=== PATIENT | male | born 1975 | race Caucasian/White ===

== ENCOUNTER 2017-10-08 18:08 | Inpatient (IN) ==
[2017-10-08] MEDS ORDERED: 0.9 % Sodium Chloride 1,000 ML IVC ONE (18:23)
[2017-10-08 18:49] LABS: Bilirubin,Urine Negative (Negative); Blood,Urine Negative (Negative); Clarity,Urine Clear (Clear); Color,Urine Yellow (Yellow); Glucose,Urine (UA) Normal (Normal); Ketones,Urine Negative (Negative); Leukocyte Esterase,Urine Negative (Negative); Nitrite,Urine Negative (Negative); Protein,Urine Negative (Neg-Trace); Specific Gravity,Urine 1.009 (1.010-1.025); Urobilinogen,Urine Normal (Normal)
[2017-10-08 18:49] LABS: Basophils # 0.1 K/mcL (0.0-0.2); Basophils % 0.8 %; Eosinophils # 0.1 K/mcL (0.0-0.6); Eosinophils % 1.3 %; Hematocrit 52.9 % (37.5-50.1); Hemoglobin 18.4 g/dL (12.9-16.9); Immature Granulocytes % 0.3 % (0-4); Lymphocytes # 1.9 K/mcL (0.6-4.6); Lymphocytes % 25.7 %; Mean Corpuscular HGB Conc 34.8 g/dL (31.6-35.5); Mean Corpuscular Hemoglobin 33.8 pg (28.0-33.3); Mean Corpuscular Volume 97.1 fL (83.0-100.0); Mean Platelet Volume 9.7 fL (9.4-12.4); Monocytes # 0.5 K/mcL (0.0-1.3); Monocytes % 7.1 %; Neutrophils # 4.8 K/mcL (1.6-8.9); Platelet Count 183 K/mcL (140-400); Red Blood Count 5.45 M/mcL (4.19-5.50); Red Cell Distribution Width 13.7 % (11.5-14.5); Segmented Neutrophils % 64.8 %
[2017-10-08 18:54] LABS: Amphetamine Screen,Urine Negative ng/mL (Cutoff=1000); Barbiturate Screen,Urine Negative ng/mL (Cutoff=200); Benzodiazepines Screen,Urine Negative ng/mL (Cutoff=200); Cannabinoid Screen,Urine Negative ng/mL (Cutoff = 50); Cocaine Screen,Urine Negative ng/mL (Cutoff= 300); Opiate Screen,Urine Negative ng/mL (Cutoff=300); Phencyclidine Screen,Urine Negative ng/mL (Cutoff=25)
[2017-10-08 19:02] LABS: Ethanol 303 mg/dL (0-10)
[2017-10-08 19:03] LABS: Alanine Aminotransferase 21 Units/L (7-52); Albumin/Globulin Ratio 1.9 (1.1-2.2); Alkaline Phosphatase 78 Units/L (34-104); Aspartate Amino Transferase 23 Units/L (13-39); BUN/Creatinine Ratio 10 (6-26); Bilirubin,Direct 0.1 mg/dL (0.0-0.2); Bilirubin,Indirect 0.5 mg/dL (0.0-1.2); Bilirubin,Total 0.6 mg/dL (0.3-1.0); Blood Urea Nitrogen 7 mg/dL (6-20); Calcium 9.5 mg/dL (8.6-10.3); Carbon Dioxide 21 mEq/L (23-29); Chloride 113 mEq/L (98-107); Globulin 2.6 g/dL (2.4-3.5); Glucose 101 mg/dL (70-105); Osmolality,Calculated 294 (280-300); Potassium 3.4 mEq/L (3.5-5.1); Sodium 143 mEq/L (136-145); Total Protein 7.6 g/dL (6.4-8.9); eGFR For African Americans > 60 (> 60); eGFR For Non-African Americans > 60 (> 60)
[2017-10-08 19:05] LABS: Acetaminophen < 1.0 mcg/mL (10-30); Salicylate < 5.0 mg/dL (15.0-30.0)
--- NOTE | 2017-10-08 19:20 | Emergency Department Note ---
START Narrative - START START: I examined this patient and my medical decision-making was reviewed with the Resident Physician. I agree with the documented findings, disposition and treatment plan as described except to the extent set forth below. 42 year old male presents to the ED from the [facility] for medical clearance and pysch eval. Essentially he took about 10 pills of hydroxyzine, propanolol, naprosyn and unknown other pill and drank beer afterwards with in the attempts of killing himself. Patient will be medically admitted for clerance and then fransisco consult due to an ETOH of 300. he is not bradycardic or hypotensive at this time
--- NOTE | 2017-10-08 19:28 | Emergency Department Note ---
Disposition Clinical Impression: Intoxication, Suicidal ideation Suicide attempt by multiple drug overdose Qualifiers: Encounter type: initial encounter Qualified Code(s): T50.902A - Poisoning by unspecified drugs, medicaments and biological substances, intentional self-harm , initial encounter Disposition: Admitted As Inpatient Condition: Good General Adult HPI - General Chief complaint: ED Overdose Stated complaint: OD Time Seen by Provider: 10/08/17 18:13 Source: patient, EMS Limitations: no limitations Nursing Notes Reviewed: Yes Vital Signs Reviewed: Yes - History of Present Illness HPI Narrative: 42 y/o male who drank some beers and took a handful of pills. [facility] because "I just want it all to end ". After arriving to our ER he denies SI/HI but is very sleepy. He is non cooperative and will not answer my questions. According to his medical record he has a hx of bipolar, anxiety, Substance abuse, HTN. Prescribed gabapentin, hydroxyzine, lurasidone, melatonin, propranolol, thiamine. Pain Scale: 0 Improves with: nothing Worsens with: nothing Associated symptoms: Reports: denies other symptoms Treatments Prior to Arrival: none - Related Data Home Medications Medication Instructions Recorded Confirmed Acetaminophen [Tylenol] 650 mg PO TID PRN 10/08/17 10/08/17 Albuterol Sulfate [Albuterol 2 puff IH Q4H PRN 10/08/17 10/08/17 Inhaler] Folic Acid 1 mg PO DAILY 10/08/17 10/08/17 Gabapentin [Neurontin] 600 mg PO TID 10/08/17 10/08/17 Lidocaine 4% CRM (LMX) [Lmx 4] 1 appl TP BID 10/08/17 10/08/17 Lurasidone HCl [Latuda] 80 mg PO HS 10/08/17 10/08/17 Melatonin 9 mg PO HS 10/08/17 10/08/17 Multivitamin [One Daily 1 each PO DAILY 10/08/17 10/08/17 Multivitamin] Naproxen [Naprosyn] 500 mg PO BID PRN 10/08/17 10/08/17 Propranolol [Inderal] 10 mg PO TID PRN 10/08/17 10/08/17 Thiamine (B-1) [Vitamin B-1] 100 mg PO DAILY 10/08/17 10/08/17 hydrOXYzine HCl [Hydroxyzine HCl] 25 mg PO BID PRN 10/08/17 10/08/17 Allergies Allergy/AdvReac Type Severity Reaction Status Date / Time No Known Allergies Allergy Verified 03/06/17 00:23 Limitations: ROS unobtainable due to patients medical condition (Refuses to answer my questions) Past Medical History - Past Medical History Medical history: Reports: no medical history Psychiatric history: Reports: anxiety, bipolar, depression, PTSD - Social History Smoking Status: Current every day smoker Alcohol use: Reports: heavy, recent Drug use: Reports: marijuana Physical Exam - General Limitations: other (Refuses to answer questions.) General appearance: appears intoxicated - Head Head exam: atraumatic - Eye Eye exam: Present: normal appearance, PERRL - ENT ENT exam: normal exam - Neck Neck exam: Present: normal inspection - Chest Chest inspection: Present: normal inspection - Respiratory Respiratory exam: Present: normal lung sounds bilaterally. Absent: respiratory distress - Cardiovascular Cardiovascular exam: Present: regular rate, normal rhythm - Abdominal Exam Abdominal exam: Present: soft, Non-Tender - Extremities Exam Extremities exam: Present: normal inspection - Neurological Exam Neurological exam: Present: other (Intoxicated. Moves all extremities. Wakes up to verbal stimuli.) - Skin Skin exam: Present: warm, dry Course Course Narrative: Intoxicated. Will admit for medical clearance and psychiatric evaluation. No bradycardia. Not currently exhibiting a toxodrome. Will need medical clearance due to pill ingestion and intoxication. ETOH required to be <80 per psychiatry. Vital Signs Temperature 97.2 F L 10/08/17 18:13 Pulse Rate 95 10/08/17 18:13 Respiratory Rate 18 10/08/17 18:13 Blood Pressure 122/79 10/08/17 18:13 O2 Sat by Pulse Oximetry 94 10/08/17 18:13 Temperature 97.2 F L 10/08/17 18:13 Pulse Rate 79 10/08/17 19:41 Respiratory Rate 12 10/08/17 19:41 Blood Pressure 118/67 10/08/17 19:41 O2 Sat by Pulse Oximetry 94 10/08/17 18:13 Oxygen Delivery Oxygen Delivery Room Air Medical Decision Making - Medical Records Medical records reviewed: Yes I reviewed the patient's medical records. - Lab Data Lab results reviewed: Yes I reviewed the patient's lab results. Result diagrams: 10/08/17 18:42 10/08/17 18:42 Lab Results 10/08/17 10/08/17 10/08/17 Range/Units 18:39 18:39 18:42 WBC 7.4 (4.3-11.1) K/mcL RBC 5.45 (4.19-5.50) M/mcL Hgb 18.4 H (12.9-16.9) g/dL Hct 52.9 H (37.5-50.1) % MCV 97.1 (83.0-100.0) fL MCH 33.8 H (28.0-33.3) pg MCHC 34.8 (31.6-35.5) g/dL RDW 13.7 (11.5-14.5) % Plt Count 183 (140-400) K/mcL MPV 9.7 (9.4-12.4) fL Immature Gran % 0.3 (0-4) % Seg Neutrophils % 64.8 % Lymphocytes % 25.7 % Monocytes % 7.1 % Eosinophils % 1.3 % Basophils % 0.8 % Neutrophils # 4.8 (1.6-8.9) K/mcL Lymphocytes # 1.9 (0.6-4.6) K/mcL Monocytes # 0.5 (0.0-1.3) K/mcL Eosinophils # 0.1 (0.0-0.6) K/mcL Basophils # 0.1 (0.0-0.2) K/mcL Sodium (136-145) mEq/L Potassium (3.5-5.1) mEq/L Chloride (98-107) mEq/L Carbon Dioxide (23-29) mEq/L BUN (6-20) mg/dL Creatinine (0.70-1.30) mg/dL Est GFR ( Amer) (> 60) Est GFR (Non-Af Amer) (> 60) BUN/Creatinine Ratio (6-26) Glucose (70-105) mg/dL Calculated Osmolality (280-300) Calcium (8.6-10.3) mg/dL Total Bilirubin (0.3-1.0) mg/dL Direct Bilirubin (0.0-0.2) mg/dL Indirect Bilirubin (0.0-1.2) mg/dL AST (13-39) Units/L ALT (7-52) Units/L Alkaline Phosphatase (34-104) Units/L Serum Total Protein (6.4-8.9) g/dL Albumin (3.5-5.7) g/dL Globulin (2.4-3.5) g/dL Albumin/Globulin Ratio (1.1-2.2) Urine Color Yellow (Yellow) Urine Clarity Clear (Clear) Urine pH 6.0 (5.0-8.0) pH Units Ur Specific [place] 1.009 L (1.010-1.025) Urine Protein Negative (Neg-Trace) mg/dL Urine Glucose (UA) Normal (Normal) mg/dL Urine Ketones Negative (Negative) mg/dL Urine Blood Negative (Negative) Urine Nitrite Negative (Negative) Urine Bilirubin Negative (Negative) Urine Urobilinogen Normal (Normal) mg/dL Ur Leukocyte Esterase Negative (Negative) Salicylates (15.0-30.0) mg/dL Urine Opiates Screen Negative (Fmtrhd=811) ng/mL Acetaminophen (10-30) mcg/mL Ur Barbiturates Screen Negative (Mxcnpi=461) ng/mL Ur Phencyclidine Scrn Negative (Cutoff=25) ng/mL Ur Amphetamines Screen Negative (Yvnlid=3513) ng/mL U Benzodiazepines Scrn Negative (Sjwavs=521) ng/mL Urine Cocaine Screen Negative (Cutoff= 300) ng/mL U Marijuana (THC) Screen Negative (Cutoff = 50) ng/mL Ethyl Alcohol (0-10) mg/dL 10/08/17 Range/Units 18:42 WBC (4.3-11.1) K/mcL RBC (4.19-5.50) M/mcL Hgb (12.9-16.9) g/dL Hct (37.5-50.1) % MCV (83.0-100.0) fL MCH (28.0-33.3) pg MCHC (31.6-35.5) g/dL RDW (11.5-14.5) % Plt Count (140-400) K/mcL MPV (9.4-12.4) fL Immature Gran % (0-4) % Seg Neutrophils % % Lymphocytes % % Monocytes % % Eosinophils % % Basophils % % Neutrophils # (1.6-8.9) K/mcL Lymphocytes # (0.6-4.6) K/mcL Monocytes # (0.0-1.3) K/mcL Eosinophils # (0.0-0.6) K/mcL Basophils # (0.0-0.2) K/mcL Sodium 143 (136-145) mEq/L Potassium 3.4 L (3.5-5.1) mEq/L Chloride 113 H (98-107) mEq/L Carbon Dioxide 21 L (23-29) mEq/L BUN 7 (6-20) mg/dL Creatinine 0.70 (0.70-1.30) mg/dL Est GFR ( Amer) > 60 (> 60) Est GFR (Non-Af Amer) > 60 (> 60) BUN/Creatinine Ratio 10 (6-26) Glucose 101 (70-105) mg/dL Calculated Osmolality 294 (280-300) Calcium 9.5 (8.6-10.3) mg/dL Total Bilirubin 0.6 (0.3-1.0) mg/dL Direct Bilirubin 0.1 (0.0-0.2) mg/dL Indirect Bilirubin 0.5 (0.0-1.2) mg/dL AST 23 (13-39) Units/L ALT 21 (7-52) Units/L Alkaline Phosphatase 78 (34-104) Units/L Serum Total Protein 7.6 (6.4-8.9) g/dL Albumin 5.0 (3.5-5.7) g/dL Globulin 2.6 (2.4-3.5) g/dL Albumin/Globulin Ratio 1.9 (1.1-2.2) Urine Color (Yellow) Urine Clarity (Clear) Urine pH (5.0-8.0) pH Units Ur Specific [place] (1.010-1.025) Urine Protein (Neg-Trace) mg/dL Urine Glucose (UA) (Normal) mg/dL Urine Ketones (Negative) mg/dL Urine Blood (Negative) Urine Nitrite (Negative) Urine Bilirubin (Negative) Urine Urobilinogen (Normal) mg/dL Ur Leukocyte Esterase (Negative) Salicylates < 5.0 L (15.0-30.0) mg/dL Urine Opiates Screen (Svhqds=925) ng/mL Acetaminophen < 1.0 L (10-30) mcg/mL Ur Barbiturates Screen (Yvesug=572) ng/mL Ur Phencyclidine Scrn (Cutoff=25) ng/mL Ur Amphetamines Screen (Vfztoh=1184) ng/mL U Benzodiazepines Scrn (Miezko=554) ng/mL Urine Cocaine Screen (Cutoff= 300) ng/mL U Marijuana (THC) Screen (Cutoff = 50) ng/mL Ethyl Alcohol 303 H (0-10) mg/dL - Radiology Data Radiology results reviewed: Yes I reviewed the patient's radiology results.
[2017-10-08] MEDS ORDERED: Ondansetron 4 MG/2 ML VIAL IVP ONE (20:34)
[2017-10-08] MEDS ORDERED: Naloxone 0.4 MG/ML INJ IVP PRN (21:12)
[2017-10-08] MEDS ORDERED: Ondansetron 4 MG/2 ML VIAL IVP PRN (21:12)
[2017-10-08] MEDS ORDERED: Acetaminophen 325 MG TABLET PO PRN (21:14)
[2017-10-08] MEDS ORDERED: *HR* LORazepam 2 MG/ML VIAL IVP PRN ×3 (21:15)
[2017-10-08] MEDS ORDERED: 0.9 % Sodium Chloride 1,000 ML IVC SCH (21:15)
[2017-10-08] MEDS ORDERED: *HR* OxyCODONE/APAP 5/325 TABLET PO PRN (22:31)
--- NOTE | 2017-10-08 22:35 | Internal Med History&Physical ---
Date of Encounter: 10/08/17 Time of Encounter: 21:40 Assessment and Plan (1) Suicide attempt by multiple drug overdose Current visit: Yes Status: Acute concern for suicide attempt with drug overdose will continue 1:1 observation psych evaluation requested IV fluids holding sedative agents Qualifiers: Encounter type: initial encounter Qualified Code(s): T50.902A - Poisoning by unspecified drugs, medicaments and biological substances, intentional self- harm, initial encounter (2) Alcohol intoxication Current visit: Yes Status: Acute closely monitor for alcohol withdrawals IV fluids folate, thiamine supplementation CIWA protocol Ativan prn withdrawal symptoms Qualifiers: Complication of substance-induced condition: with unspecified complication Qualified Code(s): F10.929 - Alcohol use, unspecified with intoxication, unspecified (3) DVT prophylaxis Current visit: Yes Status: Acute Heparin SQ (4) Rib fractures Current visit: Yes Status: Acute incidental finding of multiple rib fractures reported on CXR supportive care pain control Qualifiers: Encounter type: initial encounter Rib fracture type: multiple ribs Fracture type: closed Laterality: unspecified laterality Qualified Code(s): S22.49XA - Multiple fractures of ribs, unspecified side, initial encounter for closed fracture Internal Medicine - H&P: HPI Chief complaint: drug overdose Admitted From: Intrahospital Transfer Plans for Post Hospital Care: Transfer Psych Facility History of present illness: Mr. Dee is a 42 year old male with PMH of anxiety, bipolar disorder who was transferred to [facility] from [facility] for drug overdose as a suicide attempt. Pt reported of taking all of his home medications along with alcohol ingestion. He reports of taking propranolol, gabapentin, and "whole bunch of other pills" prior to his hospitalization. He received Charcoal at the [facility] ER. His tox screen reported ETOH >300 and psych won't evaluate the patient until his ETOH level is less than <80. Currently anxious and agitated. Refusing to communicate. Noted to have incidental finding of rib fractures on his CXR. Denies any chest/rip pain at this time. Past Med Surg Social Fam HX - Past Medical History Medical history: no medical history Psychiatric history: anxiety, bipolar, depression, PTSD - Social History Smoking Status: Current every day smoker Alcohol use: heavy, recent Drug use: marijuana Internal Medicine - H&P: Meds Acetaminophen [Tylenol] 650 mg PO TID PRN 10/08/17 [History] Albuterol Sulfate [Albuterol Inhaler] 2 puff IH Q4H PRN 10/08/17 [History] Folic Acid 1 mg PO DAILY 10/08/17 [History] Gabapentin [Neurontin] 600 mg PO TID 10/08/17 [History] Lidocaine 4% CRM (LMX) [Lmx 4] 1 appl TP BID 10/08/17 [History] Lurasidone HCl [Latuda] 80 mg PO HS 10/08/17 [History] Melatonin 9 mg PO HS 10/08/17 [History] Multivitamin [One Daily Multivitamin] 1 each PO DAILY 10/08/17 [History] Naproxen [Naprosyn] 500 mg PO BID PRN 10/08/17 [History] Propranolol [Inderal] 10 mg PO TID PRN 10/08/17 [History] Thiamine (B-1) [Vitamin B-1] 100 mg PO DAILY 10/08/17 [History] hydrOXYzine HCl [Hydroxyzine HCl] 25 mg PO BID PRN 10/08/17 [History] 3 Allergy/AdvReac Type Severity Reaction Status Date / Time No Known Allergies Allergy Verified 03/06/17 00:23 All Systems PM: A 10-system review of systems was performed and is negative for pertinent findings except as documented above in the HPI. - Constitutional Constitutional: as per HPI - Constitutional Vitals: Temp Pulse Resp BP Pulse Ox 97.2 F L 91 16 126/86 97 10/08/17 18:13 10/08/17 21:36 10/08/17 21:36 10/08/17 21:36 10/08/17 21:36 General appearance: Present: A&O X 3, no acute distress. Absent: cooperative - Head Head exam: Present: atraumatic, normocephalic - Eye Eye exam: Present: conjuntiva pink, sclera anicteric - Respiratory Respiratory exam: Present: CTAB. Absent: respiratory distress, wheezes - Cardiovascular Cardiovascular exam: Present: RRR, +S1, +S2. Absent: diastolic murmur, gallop, rubs, systolic murmur - GI/Abdominal GI/Abdominal exam: Present: normal bowel sounds, soft, no peritoneal signs. Absent: distended, tenderness - Extremities Exam Extremities exam: Present: warm, radial pulses palpable and symmetrical. Absent : calf tenderness, cyanotic, pedal edema - Psychiatric Psychiatric exam: Present: agitated, anxious Internal Med - H&P Results - Labs CBC & Chem 7: 10/08/17 18:42 10/08/17 18:42 Labs: Short CBC 10/08/17 Range/Units 18:42 WBC 7.4 (4.3-11.1) K/mcL Hgb 18.4 H (12.9-16.9) g/dL Hct 52.9 H (37.5-50.1) % Plt Count 183 (140-400) K/mcL Neutrophils # 4.8 (1.6-8.9) K/mcL BMP 10/08/17 18:42 Sodium 143 Potassium 3.4 L Chloride 113 H Carbon Dioxide 21 L BUN 7 Creatinine 0.70 Glucose 101 Calcium 9.5 Liver Function 10/08/17 Range/Units 18:42 Total Bilirubin 0.6 (0.3-1.0) mg/dL Direct Bilirubin 0.1 (0.0-0.2) mg/dL AST 23 (13-39) Units/L ALT 21 (7-52) Units/L Alkaline Phosphatase 78 (34-104) Units/L Albumin 5.0 (3.5-5.7) g/dL Urine 10/08/17 Range/Units 18:39 Urine Color Yellow (Yellow) Urine Clarity Clear (Clear) Urine pH 6.0 (5.0-8.0) pH Units Ur Specific [place] 1.009 L (1.010-1.025) Urine Protein Negative (Neg-Trace) mg/dL Urine Glucose (UA) Normal (Normal) mg/dL - Impressions ITS Impressions Chest X-Ray 10/08/17 18:24 IMPRESSION: No focal consolidation. Bilateral rib fractures. D/ / Scarlett North MD / Scarlett North MD Interpreting Provider: Scarlett North MD
[2017-10-08] MEDS ORDERED: *HR* LORazepam 2 MG/ML VIAL IVP ONE (23:43)
[2017-10-08] MEDS ORDERED: Haloperidol Lactate 5 MG/ML VIAL IVP ONE (23:43)
[2017-10-09] MEDS ORDERED: Ziprasidone injection 20 MG/ML VIAL IM ONE (00:02)
[2017-10-09 05:07] LABS: Basophils % 0.4 %; Eosinophils # 0.1 K/mcL (0.0-0.6); Eosinophils % 2.4 %; Hematocrit 48.1 % (37.5-50.1); Immature Granulocytes % 0.4 % (0-4); Lymphocytes # 1.7 K/mcL (0.6-4.6); Lymphocytes % 33.8 %; Mean Corpuscular HGB Conc 34.3 g/dL (31.6-35.5); Mean Corpuscular Hemoglobin 33.8 pg (28.0-33.3); Mean Corpuscular Volume 98.6 fL (83.0-100.0); Mean Platelet Volume 9.9 fL (9.4-12.4); Monocytes # 0.4 K/mcL (0.0-1.3); Monocytes % 6.9 %; Neutrophils # 2.8 K/mcL (1.6-8.9); Platelet Count 157 K/mcL (140-400); Red Blood Count 4.88 M/mcL (4.19-5.50); Segmented Neutrophils % 56.1 %
[2017-10-09 05:10] LABS: Hemoglobin 16.5 g/dL (12.9-16.9)
[2017-10-09 05:24] LABS: BUN/Creatinine Ratio 6 (6-26); Blood Urea Nitrogen 4 mg/dL (6-20); Calcium 8.4 mg/dL (8.6-10.3); Carbon Dioxide 25 mEq/L (23-29); Chloride 117 mEq/L (98-107); Glucose 84 mg/dL (70-105); Magnesium 2.1 mg/dL (1.6-2.6); Osmolality,Calculated 294 (280-300); Phosphorous 3.1 mg/dL (2.7-4.5); Potassium 3.7 mEq/L (3.5-5.1); Sodium 144 mEq/L (136-145); eGFR For African Americans > 60 (> 60); eGFR For Non-African Americans > 60 (> 60)
[2017-10-09] MEDS: *HR* Heparin 5,000 UNIT/ML VIAL SQ SCH ×2 (06:05→13:46)
[2017-10-09] MEDS ORDERED: Multivit/Ca/Min/Fe/FA 1 TAB TABLET PO SCH (09:00)
[2017-10-09] MEDS ORDERED: Folic Acid 1 MG TABLET PO SCH (09:00)
[2017-10-09] MEDS ORDERED: Thiamine (B-1) 100 MG TABLET PO SCH (09:00)
--- NOTE | 2017-10-09 12:12 | Electrocardiograph Report ---
[place] [id number] Test Date: 2017-10-08 Pat Name: Jr Dee Department: 104 Room: 3A13 Gender: M Facilities Officer: : 1975 Requested By: Adela Cook Order Number: [id number] Reading MD: Maciel Cuevas DO Measurements Intervals [place] Rate: 92 P: 72 NE: 175 QRS: 69 QRSD: 121 T: 60 QT: 361 QTc: 410 Interpretive Statements SINUS RHYTHM POSSIBLE RIGHT VENTRICULAR CONDUCTION DELAY Electronically Signed On 10-09-2017 12:09:53 EST by Maciel Cuevas DO
[2017-10-09] MEDS ORDERED: Acetaminophen 325 MG TABLET PO PRN (15:00)
[2017-10-09 15:12] VITALS: BP 130/85
[2017-10-09] MEDS ORDERED: NAPROXEN 500 MG PO PRN (16:50)
[2017-10-09] MEDS ORDERED: NON-FORMULARY MEDICATION 1 EACH EACH (Hydroxyzine Hcl [Hydroxyzine Hcl] 25 MG) PO PRN (16:50)
--- NOTE | 2017-10-09 17:05 | Discharge Summary ---
Date of Encounter: 10/09/17 Time of Encounter: 17:05 - Discharge Diagnosis (1) Alcohol intoxication Priority: Primary Status: Acute Comments: Alcohol with no intent to harm himself Qualifiers: Complication of substance-induced condition: uncomplicated Qualified Code(s ): F10.920 - Alcohol use, unspecified with intoxication, uncomplicated (2) PTSD (post-traumatic stress disorder) Priority: Secondary Status: Chronic Code(s): F43.10 - Post-traumatic stress disorder, unspecified (3) Rib fractures Priority: Primary Status: Chronic Qualifiers: Encounter type: initial encounter Rib fracture type: multiple ribs Fracture type: closed Laterality: unspecified laterality Qualified Code(s): S22.49XA - Multiple fractures of ribs, unspecified side, initial encounter for closed fracture - Discharge Medications Home Medications: Acetaminophen [Tylenol] 650 mg PO TID PRN 10/08/17 [History] Albuterol Sulfate [Albuterol Inhaler] 2 puff IH Q4H PRN 10/08/17 [History] Folic Acid 1 mg PO DAILY 10/08/17 [History] Gabapentin [Neurontin] 600 mg PO TID 10/08/17 [History] Lidocaine 4% CRM (LMX) [Lmx 4] 1 appl TP BID 10/08/17 [History] Lurasidone HCl [Latuda] 80 mg PO HS 10/08/17 [History] Melatonin 9 mg PO HS 10/08/17 [History] Multivitamin [One Daily Multivitamin] 1 each PO DAILY 10/08/17 [History] Naproxen [Naprosyn] 500 mg PO BID PRN 10/08/17 [History] Propranolol [Inderal] 10 mg PO TID PRN 10/08/17 [History] Thiamine (B-1) [Vitamin B-1] 100 mg PO DAILY 10/08/17 [History] hydrOXYzine HCl [Hydroxyzine HCl] 25 mg PO BID PRN 10/08/17 [History] Allergies/Adverse Reactions: 3 Allergy/AdvReac Type Severity Reaction Status Date / Time No Known Allergies Allergy Verified 03/06/17 00:23 Date of admission: 10/09/17 00:22 [facility] Consults: Social work Discharging clinician: Nasim London Anticipated date of discharge: 10/09/17 (Now) - Patient Status Disposition: Home, Self-Care Condition: Good Functional capacity at discharge: independent ambulation Overall status at discharge: patient is progressing back to baseline - Discharge Instructions Instructions: Safe Use of Acetaminophen (DC) Follow Up With: [facility],PCP [Primary Care Provider] - Forms: ED Satisfaction Letter Hospital course: Mr. Dee is a 42 year old man who was directly admitted from the [facility] with acute alcohol intoxication and suspected possible suicide attempt. He was sober this morning and denied any intent to harm himself and denied suicidal or homicial ideations. His UDS was negative and his VS were stable. He denied taking an additional dose of his prescription medications. He has a remote history of a prior suicide attempt but this was many years ago. He does have a history of binge drinking and claims that is what happened overnight. He is hemodynamically stable with normal VS. He has f/u within days with the [facility] psychiatry service as an OP. Psychiatry was initially consulted but after briefly meeting with the patient did not feel he needed an official consult. No 72 hour hold order was initiated due to his statements denying SI. No new medications were started. He had no signs of intoxication at discharge and his repeat ETOH level was wnl. - Time Spent with Patient Total time spent providing and/or coordinating discharge services: Greater than 30 minutes - Constitutional Vitals: Temp Pulse Resp BP Pulse Ox 98.2 F 71 16 130/85 95 10/09/17 15:07 10/09/17 15:07 10/09/17 15:07 10/09/17 15:07 10/09/17 15:07 General appearance: Present: A&O X 3, no acute distress. Absent: cooperative Exam: A&Ox3 in no acute distress. - Head Additional comments: Atraumatic and normocephalic - Eye Additional comments: PERRLA without scleral icterus or conjuctival injection - ENT Additional comments: No oral or perioral lesions. No otorrhea or rhiorrhea - Neck Additional comments: No cervical LAD or JVD thyroid midline and nontender without thyromegally - Respiratory Additional comments: CTAB without wheezing, rales or rhonchi - Cardiovascular Additional comments: RRR without murmurs, rubs or mathew - GI/Abdominal Additional comments: Soft nontender, nondistended, with normal BS all 4 quads - Extremities Exam Additional comments: No pedal edema with normal distal pulses bilaterally - Neurological Exam Additional comments: No focal neurological deficits - Psychiatric Additional comments: Normal affect without signs of depression, fear, anxiety, panic or anger. No abnormal behavior. - Skin Additional comments: warm and dry without rashes, needle perdue or bruises - VTE Deep Vein Thrombosis/Pulmonary Embolism Present on Admission: No - AMI Reason for No Aspirin at Discharge: Refusal of treatment by patient Reason for No Statin at DC: Refusal of treatment by patient
[2017-10-09] MEDS ORDERED: LIDOCAINE 4% TP SCH (21:00)
[2017-10-09] MEDS ORDERED: MELATONIN 9 MG PO SCH (21:00)
[2017-10-09] MEDS ORDERED: NON-FORMULARY MEDICATION 1 EACH EACH (Gabapentin [Neurontin] 600 MG) PO SCH (21:00)
== END 2017-10-09 17:50 | disposition home or self-care (01) | DRG 897 ==
LOC: EMEROO 18:08 → 3ANU 10-09 00:22
PROVIDERS: ADMIT Internal Medicine; ATTEND Internal Medicine

== ENCOUNTER 2021-05-02 20:14 | Observation (INO) ==
[2021-05-02 20:58] LABS: Bilirubin,Urine Negative (Negative); Blood,Urine Negative (Negative); Clarity,Urine Clear (Clear); Color,Urine Colorless (Yellow); Glucose,Urine (UA) Normal (Normal); Ketones,Urine Negative (Negative); Leukocyte Esterase,Urine Negative (Negative); Nitrite,Urine Negative (Negative); Protein,Urine Negative (Neg-Trace); Specific Gravity,Urine < 1.005 (1.010-1.025); Urobilinogen,Urine Normal (Normal)
[2021-05-02 20:59] LABS: Basophils % 0.5 %; Eosinophils # 0.1 K/mcL (0.0-0.6); Eosinophils % 1.8 %; Hematocrit 46.2 % (37.5-50.1); Hemoglobin 16.1 g/dL (12.9-16.9); Immature Granulocytes % 0.4 % (0-4); Lymphocytes # 1.9 K/mcL (0.6-4.6); Lymphocytes % 24.1 %; Mean Corpuscular HGB Conc 34.8 g/dL (31.6-35.5); Mean Corpuscular Volume 97.7 fL (83.0-100.0); Mean Platelet Volume 9.7 fL (9.4-12.4); Monocytes # 0.7 K/mcL (0.0-1.3); Monocytes % 8.6 %; Neutrophils # 5.1 K/mcL (1.6-8.9); Platelet Count 215 K/mcL (140-400); Red Blood Count 4.73 M/mcL (4.19-5.50); Red Cell Distribution Width 12.3 % (11.5-14.5); Segmented Neutrophils % 64.6 %; White Blood Count 7.8 K/mcL (4.3-11.1)
[2021-05-02 21:09] LABS: Estimated Average Glucose 94 mg/dl; Hemoglobin A1C 4.9 %
[2021-05-02 21:10] LABS: Amphetamine Screen,Urine Negative ng/mL (Cutoff=1000); Barbiturate Screen,Urine Negative ng/mL (Cutoff=200); Benzodiazepines Screen,Urine Negative ng/mL (Cutoff=200); Cannabinoid Screen,Urine Positive ng/mL (Cutoff = 50); Cocaine Screen,Urine Negative ng/mL (Cutoff= 300); Opiate Screen,Urine Negative ng/mL (Cutoff=300); Phencyclidine Screen,Urine Negative ng/mL (Cutoff=25)
[2021-05-02 21:19] LABS: Acetaminophen < 10 mcg/mL (10-20); BUN/Creatinine Ratio 8 (6-26); Blood Urea Nitrogen 6 mg/dL (6-20); Calcium 8.8 mg/dL (8.6-10.3); Carbon Dioxide 25 mEq/L (23-29); Chloride 98 mEq/L (98-107); Chol/HDL Ratio 2.3 (0-4.9); Cholesterol 198 mg/dL (< 200); Ethanol 136 mg/dL (Less than 10); Glucose 92 mg/dL (70-105); HDL Cholesterol 86 mg/dL (40-59); LDL Cholesterol,Calculated 85 mg/dL (< 100); Osmolality,Calculated 271 (280-300); Potassium 3.5 mEq/L (3.5-5.1); Salicylate < 2.5 mg/dL (15.0-30.0); Sodium 132 mEq/L (136-145); Triglycerides 133 mg/dL (< 150); eGFR For African Americans > 60 (> 60); eGFR For Non-African Americans > 60 (> 60)
[2021-05-02] MEDS ORDERED: Naloxone 0.4 MG/ML INJ IVP PRN (23:13)
[2021-05-02] MEDS ORDERED: *HR* Promethazine 25 MG/ML VIAL IM PRN (23:19)
[2021-05-02] MEDS ORDERED: *HR* LORazepam 2 MG/ML VIAL IVP PRN ×3 (23:19)
[2021-05-03 02:00] LABS: Basophils % 0.4 %; Eosinophils # 0.2 K/mcL (0.0-0.6); Eosinophils % 3.4 %; Hematocrit 45.1 % (37.5-50.1); Hemoglobin 15.9 g/dL (12.9-16.9); Immature Granulocytes % 0.4 % (0-4); Lymphocytes # 1.5 K/mcL (0.6-4.6); Lymphocytes % 28.8 %; Mean Corpuscular HGB Conc 35.3 g/dL (31.6-35.5); Mean Corpuscular Hemoglobin 34.5 pg (28.0-33.3); Mean Corpuscular Volume 97.8 fL (83.0-100.0); Mean Platelet Volume 9.6 fL (9.4-12.4); Monocytes # 0.4 K/mcL (0.0-1.3); Monocytes % 7.8 %; Platelet Count 187 K/mcL (140-400); Red Blood Count 4.61 M/mcL (4.19-5.50); Red Cell Distribution Width 12.5 % (11.5-14.5); Segmented Neutrophils % 59.2 %
[2021-05-03 02:25] LABS: BUN/Creatinine Ratio 8 (6-26); Blood Urea Nitrogen 5 mg/dL (6-20); Calcium 8.6 mg/dL (8.6-10.3); Carbon Dioxide 23 mEq/L (23-29); Chloride 108 mEq/L (98-107); Glucose 84 mg/dL (70-105); Osmolality,Calculated 288 (280-300); Potassium 3.7 mEq/L (3.5-5.1); Sodium 141 mEq/L (136-145); eGFR For African Americans > 60 (> 60); eGFR For Non-African Americans > 60 (> 60)
[2021-05-03] MEDS ORDERED: *HR* Heparin 5,000 UNIT/ML VIAL SQ SCH (06:00)
[2021-05-03] MEDS: Folic Acid 1 MG TABLET PO SCH ×2 (08:10)
[2021-05-03 08:50] VITALS: BP 120/77; PULSE 75; TEMP 97.7; O2SAT 97
[2021-05-03] MEDS ORDERED: Thiamine (B-1) 100 MG TABLET PO SCH (09:00)
== END 2021-05-03 12:53 | disposition left against medical advice (07) ==
LOC: EMEROOARM 20:14 → 2ANU 20:14
PROVIDERS: ADMIT Internal Medicine; ATTEND Internal Medicine